=== PATIENT | male | born 1990 | race Caucasian/White ===

== ENCOUNTER 2019-09-20 15:59 | Emergency (ER) | payer OTHER, MEDICAID ==
[~2019-09-20] VITALS: Ht 165.1 cm; Wt 90.7 kg
[~2019-09-20 15:59] MED LIST: PREDNISONE 20 M20 MG PO; PROAIR HFA8.5 GM IH; ZPAK PO
[2019-09-20] MEDS ORDERED: SYMBICORT160 MCG/4. INH (16:21)
[2019-09-20 16:51] LABS: HEMATOCRIT 46.2 % (42.0-52.0); HEMOGLOBIN 15.8 gm/dL (14.0-18.0); MCH 30.4 pg (26.0-34.0); MCHC 34.2 g/dL (28.0-37.0); MCV 88.9 fL (80.0-100.0); MPV 8.3 fl. (7.2-11.1); RBC 5.19 mil/uL (4.50-6.00); RDW-CV 12.9 % (10.5-14.5); WBC 12.7 thou/uL (4.0-11.0)
[2019-09-20 17:10] LABS: CALCIUM 8.7 mg/dL (8.5-10.1); POTASSIUM 4.4 mmol/L (3.5-5.1)
[2019-09-20 17:34] VITALS: BP 155/106
[2019-09-21 22:42] LABS: ALBUMIN 4.2 g/dL (3.4-5.0); DIRECT BILIRUBIN 0.1 mg/dL (<0.1-0.3); TOTAL BILIRUBIN 0.2 mg/dL (<0.1-1.0); TOTAL PROTEIN 8.4 g/dL (6.4-8.2)
== END 2019-09-20 17:44 | disposition home or self-care (01) ==
LOC: M.ERS 15:59
PROVIDERS: Emergency Medicine Emergency Medical Services; Internal Medicine Gastroenterology
DX: T18.128A Food in esophagus causing other injury, initial encounter (principal); J45.909 Unspecified asthma, uncomplicated; Z88.0 Allergy status to penicillin; X58.XXXA Exposure to other specified factors, initial encounter; Y93.89 Activity, other specified; Y92.89 Other specified places as the place of occurrence of the external cause; Y99.8 Other external cause status